=== PATIENT | male | born 1960 | race Caucasian/White ===

== ENCOUNTER 2017-06-09 20:02 | Inpatient (IN) ==
[2017-06-09] MEDS ORDERED: Ondansetron 4 MG/2 ML VIAL IVP ONE (20:07)
[2017-06-09] MEDS ORDERED: 0.9 % Sodium Chloride 1,000 ML IVC ONE ×2 (20:07→21:44)
[2017-06-09] MEDS ORDERED: *HR* FentaNYL (PF) 100 MCG/2 ML VIAL IVP ONE ×2 (20:08→22:11)
[2017-06-09 20:35] LABS: Hematocrit 48.6 % (37.5-50.1); Hemoglobin 16.2 g/dL (12.9-16.9); Mean Corpuscular HGB Conc 33.3 g/dL (31.6-35.5); Mean Corpuscular Hemoglobin 28.7 pg (28.0-33.3); Mean Platelet Volume 9.9 fL (9.4-12.4); Platelet Count 362 K/mcL (140-400); Red Blood Count 5.65 M/mcL (4.19-5.50); Red Cell Distribution Width 14.8 % (11.5-14.5)
--- NOTE | 2017-06-09 20:36 | Emergency Department Note ---
Disposition Clinical Impression: Elevated troponin, SARAH (acute kidney injury), Transaminitis Pancreatitis Qualifiers: Chronicity: acute Pancreatitis type: unspecified pancreatitis type Acute pancreatitis complication: unspecified Qualified Code(s): K85.90 - Acute pancreatitis without necrosis or infection, unspecified Disposition: Admitted As Inpatient Condition: Fair General Adult HPI - General Chief complaint: ED Shortness of Breath/Dyspnea Stated complaint: SHAZIA Time Seen by Provider: 06/09/17 20:06 Source: patient Mode of arrival: EMS Limitations: no limitations Nursing Notes Reviewed: Yes Vital Signs Reviewed: Yes - History of Present Illness HPI Narrative: 56-year-old male history of hypertension, chronic smoking who presents to the ER via EMS due to shortness of breath. Patient remarks that he has felt unwell for 2 days. Symptoms started on Thursday. Reports she has been short of breath with the cough. He has had intermittent substernal chest pain. He is on to report that he has had some periumbilical abdominal pain. No nausea vomiting or diarrhea but feels like he needs to vomit. No prior history of abdominal surgeries. No history of coronary artery disease. He does not wear oxygen at home. EMS reports that he was in the low 80s upon arrival and appeared ashen. He was placed on supplemental oxygen with improvement of his saturation. No other complaints. Pt Subjective Complaint: Short of breath, chest pain, abdominal pain Onset (ago): day(s) Location: abdomen Pain Scale: 8 Consistency: constant Improves with: nothing Worsens with: other (Palpation) Associated symptoms: Reports: chest pain, shortness of breath. Denies: fever/ chills, nausea/vomiting Treatments Prior to Arrival: none - Related Data Home Medications Medication Instructions Recorded Confirmed Aspirin Enteric Coated [Aspirin EC] 81 mg PO DAILY 06/09/17 06/09/17 Atenolol [Tenormin] 50 mg PO DAILY 06/09/17 06/09/17 Gabapentin [Neurontin] 800 mg PO TID 06/09/17 06/09/17 Multivitamin [One Daily Essential] 1 each PO DAILY 06/09/17 06/09/17 Quetiapine Fumarate [Seroquel] 50 mg PO HS 06/09/17 06/09/17 Sertraline [Zoloft] 150 mg PO DAILY 06/09/17 06/09/17 Simvastatin [Zocor] 20 mg PO HS 06/09/17 06/09/17 Tizanidine HCl 4 mg PO TID PRN 06/09/17 06/09/17 Allergies Allergy/AdvReac Type Severity Reaction Status Date / Time No Known Allergies Allergy Verified 12/13/14 18:30 All systems ED: reviewed and negative except as stated. Constitutional: Denies: fever Cardiovascular: Reports: chest pain Respiratory: Reports: cough, dyspnea Gastrointestinal: Reports: abdominal pain. Denies: nausea, vomiting, diarrhea Past Medical History - Past Medical History Attestation: Yes The following information was validated with the patient. Source: patient Medical history: Reports: hypertension Surgical history: Reports: other Psychiatric history: Reports: no psych history - Social History Smoking Status: Current every day smoker Smokeless Tobacco Status: No Alcohol use: Reports: none Drug use: Reports: none Physical Exam - General Limitations: no limitations General appearance: alert, anxious - Head Head exam: atraumatic, normocephalic - Eye Eye exam: Present: normal appearance - ENT ENT exam: normal exam - Neck Neck exam: Present: normal inspection - Chest Chest inspection: Present: normal inspection, symmetric chest wall rise - Respiratory Respiratory exam: Present: accessory muscle use, other (Bilateral rhonchi, tachypnea. ). Absent: wheezes, stridor, prolonged expiratory phase - Cardiovascular Cardiovascular exam: Present: regular rate, normal rhythm, normal heart sounds. Absent: systolic murmur (No appreciable murmurs however auscultation limited due to breath sounds.) - Abdominal Exam Abdominal exam: Present: tenderness (Patient has tenderness diffusely with pain out of proportion. He exhibits involuntary guarding.) - Extremities Exam Extremities exam: Present: normal inspection, full ROM - Expanded Upper Extremity Exam Shoulder exam: Present: normal inspection, full ROM Arm exam: Present: normal inspection, full ROM Elbow exam: Present: normal inspection, full ROM Forearm/Wrist exam: Present: normal inspection, full ROM Hand exam: Present: normal inspection, full ROM - Expanded Lower Extremity Exam Hip/Pelvis exam: Present: normal inspection, full ROM Upper leg exam: Present: normal inspection, full ROM Knee exam: Present: normal inspection, full ROM Lower leg exam: Present: normal inspection, full ROM Ankle exam: Present: normal inspection, full ROM Foot/toe exam: Present: normal inspection, full ROM - Neurological Exam Neurological exam: Present: alert, other (GCS 15.) - Skin Skin exam: Present: warm, dry Course Course Narrative: Patient seen and examined upon time of arrival. 92% on room air. Supplemental oxygen applied. Noted to be 90/60 marginal blood pressure with a concerning peritoneal abdominal exam. [id number] bedside ultrasound unable to fully visualize aorta secondary to bowel gas. Patient taken emergently for angiogram of the chest abdomen and pelvis for dissection evaluation. EKG labs ordered. Normal saline bolus initiated. Fentanyl ordered for pain. - Reevaluation(s) Reevaluation #1: Patient back from CT. Feels somewhat better after a dose of fentanyl. Blood pressure is improved. I will call the radiologist and speak with the results as we are concerned for potential dissection or other intra-abdominal catastrophe. Reevaluation #2: Discussed results of imaging labs with the patient. Agreeable with being admitted. Patient given another dose of knowing ketamine for pain. - Consultations Consultation #1: I spoke with the radiologist to evaluate the patient's CTA of the chest abdomen and pelvis. They do not view any acute dissection. They do see some. Pancreatic stranding consistent with pancreatitis. Vital Signs Temperature 97.8 F 06/09/17 20:02 Pulse Rate 88 06/09/17 20:02 Respiratory Rate 16 06/09/17 20:02 Blood Pressure 90/60 06/09/17 20:02 O2 Sat by Pulse Oximetry 89 06/09/17 20:02 Temperature 97.8 F 06/09/17 20:02 Pulse Rate 88 06/09/17 23:03 Respiratory Rate 20 06/09/17 23:03 Blood Pressure 97/68 06/09/17 23:03 O2 Sat by Pulse Oximetry 100 06/09/17 23:03 Oxygen Delivery Oxygen Delivery Nasal Cannula Medical Decision Making - [facility] Narrative Medical decision making narrative: 56-year-old male presents to the ER due to shortness of breath for 2 days as well as abdominal pain. Noted to have a concerning abdominal exam upon arrival. CT of the chest abdomen pelvis reviewed without any evidence of dissection. He is noted to have pancreatitis with an elevated lipase. He also demonstrates a transaminitis as well as an acute kidney injury with a creatinine of 3. Noted to have a troponin of 0.72 without any ischemic changes on his EKG. Patient given 2 L of IV fluids for transient hypotension. Single 2 as well as ketamine. Patient is admitted to the hospitalist service for pancreatitis, transaminitis, acute kidney injury, elevated troponin. - Lab Data Lab results reviewed: Yes I reviewed the patient's lab results. Result diagrams: 06/09/17 20:11 06/09/17 20:11 Lab Results 06/09/17 06/09/17 06/09/17 Range/Units 20:11 20:11 20:11 WBC 20.5 H (4.3-11.1) K/mcL RBC 5.65 H (4.19-5.50) M/mcL Hgb 16.2 (12.9-16.9) g/dL Hct 48.6 (37.5-50.1) % MCV 86.0 (83.0-100.0) fL MCH 28.7 (28.0-33.3) pg MCHC 33.3 (31.6-35.5) g/dL RDW 14.8 H (11.5-14.5) % Plt Count 362 (140-400) K/mcL MPV 9.9 (9.4-12.4) fL Seg Neutrophils % 64.0 % Band Neutrophils % 32.0 H (0-4) % Lymphocytes % 4.0 % Neutrophils # 19.7 H (1.6-8.9) K/mcL Lymphocytes # 0.8 (0.6-4.6) K/mcL Platelet Estimate Normal (Normal) PT (9.4-12.1) Seconds INR Sodium 134 L (136-145) mEq/L Potassium 4.3 (3.5-5.1) mEq/L Chloride 98 (98-107) mEq/L Carbon Dioxide 18 L (23-29) mEq/L BUN 80 H (6-20) mg/dL Creatinine 3.04 H (0.70-1.30) mg/dL Est GFR ( Amer) 26 L (> 60) Est GFR (Non-Af Amer) 21 L (> 60) BUN/Creatinine Ratio 26 (6-26) Glucose 99 (70-105) mg/dL Calculated Osmolality 302 H (280-300) Calcium 8.5 L (8.6-10.3) mg/dL Total Bilirubin 0.9 (0.3-1.0) mg/dL Direct Bilirubin 0.2 (0.0-0.2) mg/dL Indirect Bilirubin 0.7 (0.0-1.2) mg/dL AST 249 H (13-39) Units/L ALT 109 H (7-52) Units/L Alkaline Phosphatase 114 H (34-104) Units/L Troponin I 0.72 H* (< 0.04) ng/mL B-Natriuretic Peptide (Less than 100) pg/mL Serum Total Protein 6.8 (6.4-8.9) g/dL Albumin 3.6 (3.5-5.7) g/dL Globulin 3.2 (2.4-3.5) g/dL Albumin/Globulin Ratio 1.1 (1.1-2.2) Triglycerides 208 H (< 150) mg/dL Lipase 917 H (11-82) Units/L Urine Color (Yellow) Urine Clarity (Clear) Urine pH (5.0-8.0) pH Units Ur Specific [place] (1.010-1.025) Urine Protein (Neg-Trace) mg/dL Urine Glucose (UA) (Normal) mg/dL Urine Ketones (Negative) mg/dL Urine Blood (Negative) Urine Nitrite (Negative) Urine Bilirubin (Negative) Urine Urobilinogen (Normal) mg/dL Ur Leukocyte Esterase (Negative) Urine Microscopic RBC (0-3) per hpf Urine Microscopic WBC (0-3) per hpf Ur Squamous Epith Cells (None-Few) per lpf Urine Bacteria (None-Few) per hpf Urine Sperm Ur Culture Indicated? (NO) Blood Type Antibody Screen 06/09/17 06/09/17 06/09/17 Range/Units 20:15 20:24 20:33 WBC (4.3-11.1) K/mcL RBC (4.19-5.50) M/mcL Hgb (12.9-16.9) g/dL Hct (37.5-50.1) % MCV (83.0-100.0) fL MCH (28.0-33.3) pg MCHC (31.6-35.5) g/dL RDW (11.5-14.5) % Plt Count (140-400) K/mcL MPV (9.4-12.4) fL Seg Neutrophils % % Band Neutrophils % (0-4) % Lymphocytes % % Neutrophils # (1.6-8.9) K/mcL Lymphocytes # (0.6-4.6) K/mcL Platelet Estimate (Normal) PT 13.4 H (9.4-12.1) Seconds INR 1.2 Sodium (136-145) mEq/L Potassium (3.5-5.1) mEq/L Chloride (98-107) mEq/L Carbon Dioxide (23-29) mEq/L BUN (6-20) mg/dL Creatinine (0.70-1.30) mg/dL Est GFR ( Amer) (> 60) Est GFR (Non-Af Amer) (> 60) BUN/Creatinine Ratio (6-26) Glucose (70-105) mg/dL Calculated Osmolality (280-300) Calcium (8.6-10.3) mg/dL Total Bilirubin (0.3-1.0) mg/dL Direct Bilirubin (0.0-0.2) mg/dL Indirect Bilirubin (0.0-1.2) mg/dL AST (13-39) Units/L ALT (7-52) Units/L Alkaline Phosphatase (34-104) Units/L Troponin I (< 0.04) ng/mL B-Natriuretic Peptide 223 H (Less than 100) pg/mL Serum Total Protein (6.4-8.9) g/dL Albumin (3.5-5.7) g/dL Globulin (2.4-3.5) g/dL Albumin/Globulin Ratio (1.1-2.2) Triglycerides (< 150) mg/dL Lipase (11-82) Units/L Urine Color (Yellow) Urine Clarity (Clear) Urine pH (5.0-8.0) pH Units Ur Specific [place] (1.010-1.025) Urine Protein (Neg-Trace) mg/dL Urine Glucose (UA) (Normal) mg/dL Urine Ketones (Negative) mg/dL Urine Blood (Negative) Urine Nitrite (Negative) Urine Bilirubin (Negative) Urine Urobilinogen (Normal) mg/dL Ur Leukocyte Esterase (Negative) Urine Microscopic RBC (0-3) per hpf Urine Microscopic WBC (0-3) per hpf Ur Squamous Epith Cells (None-Few) per lpf Urine Bacteria (None-Few) per hpf Urine Sperm Ur Culture Indicated? (NO) Blood Type B POSITIVE Antibody Screen NEGATIVE 06/09/17 Range/Units 21:33 WBC (4.3-11.1) K/mcL RBC (4.19-5.50) M/mcL Hgb (12.9-16.9) g/dL Hct (37.5-50.1) % MCV (83.0-100.0) fL MCH (28.0-33.3) pg MCHC (31.6-35.5) g/dL RDW (11.5-14.5) % Plt Count (140-400) K/mcL MPV (9.4-12.4) fL Seg Neutrophils % % Band Neutrophils % (0-4) % Lymphocytes % % Neutrophils # (1.6-8.9) K/mcL Lymphocytes # (0.6-4.6) K/mcL Platelet Estimate (Normal) PT (9.4-12.1) Seconds INR Sodium (136-145) mEq/L Potassium (3.5-5.1) mEq/L Chloride (98-107) mEq/L Carbon Dioxide (23-29) mEq/L BUN (6-20) mg/dL Creatinine (0.70-1.30) mg/dL Est GFR ( Amer) (> 60) Est GFR (Non-Af Amer) (> 60) BUN/Creatinine Ratio (6-26) Glucose (70-105) mg/dL Calculated Osmolality (280-300) Calcium (8.6-10.3) mg/dL Total Bilirubin (0.3-1.0) mg/dL Direct Bilirubin (0.0-0.2) mg/dL Indirect Bilirubin (0.0-1.2) mg/dL AST (13-39) Units/L ALT (7-52) Units/L Alkaline Phosphatase (34-104) Units/L Troponin I (< 0.04) ng/mL B-Natriuretic Peptide (Less than 100) pg/mL Serum Total Protein (6.4-8.9) g/dL Albumin (3.5-5.7) g/dL Globulin (2.4-3.5) g/dL Albumin/Globulin Ratio (1.1-2.2) Triglycerides (< 150) mg/dL Lipase (11-82) Units/L Urine Color Dark Yellow (Yellow) Urine Clarity Turbid A (Clear) Urine pH 6.0 (5.0-8.0) pH Units Ur Specific [place] 1.027 H (1.010-1.025) Urine Protein 100 H (Neg-Trace) mg/dL Urine Glucose (UA) Normal (Normal) mg/dL Urine Ketones Negative (Negative) mg/dL Urine Blood Large H (Negative) Urine Nitrite Negative (Negative) Urine Bilirubin Small H (Negative) Urine Urobilinogen Normal (Normal) mg/dL Ur Leukocyte Esterase Small H (Negative) Urine Microscopic RBC 0-3 (0-3) per hpf Urine Microscopic WBC TNTC H (0-3) per hpf Ur Squamous Epith Cells Many H (None-Few) per lpf Urine Bacteria None Seen (None-Few) per hpf Urine Sperm Present Ur Culture Indicated? NO. (NO) Blood Type Antibody Screen - Radiology Data Radiology results reviewed: Yes I reviewed the patient's radiology results. Chest X-Ray 06/09/17 20:08 IMPRESSION: Low lung volumes No acute cardiopulmonary disease. D/ / Alessandro Shah MD / Alessandro Shah MD Interpreting Provider: Alessandro Shah MD Abdomen/Pelvis CTA 06/09/17 20:15 IMPRESSION: No evidence of an acute aortic syndrome involving the thoracoabdominal aorta. Diffusely ectatic thoracoabdominal aorta with moderate to heavy diffuse mixed atherosclerotic plaque throughout its course. 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 Peripancreatic inflammatory stranding suspicious for interstitial edematous pancreatitis. No organized peripancreatic fluid collection or evidence of pancreatic necrosis. Inflammatory stranding along the left pericolic gutter and within the pelvis. Although this may relate to pancreatitis, undifferentiated colitis is not entirely excluded given colonic air-fluid levels and possible mild wall thickening. Ischemic colitis is felt unlikely given patent visceral branch vessels and lack of portal venous gas and pneumatosis coli. Scattered tree-in-bud nodularity throughout the lungs with more patchy consolidative opacities at the left lung base. These findings are most suspicious for sequelae of aspiration given basilar predominant bronchial wall thickening with mucoid impaction, tracheobronchial secretions and esophageal features suggesting dysmotility and reflux. Critical results were called by Dr. Mohsen Mendoza to Matt Briceño on 06/09/2017 at 20:50. D/ / 06/09/2017 21:17:07 Mohsen Mendoza / sunshine Interpreting Provider: Mohsen Mendoza Chest CTA 06/09/17 20:15 IMPRESSION: No evidence of an acute aortic syndrome involving the thoracoabdominal aorta. Diffusely ectatic thoracoabdominal aorta with moderate to heavy diffuse mixed atherosclerotic plaque throughout its course. 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 Peripancreatic inflammatory stranding suspicious for interstitial edematous pancreatitis. No organized peripancreatic fluid collection or evidence of pancreatic necrosis. Inflammatory stranding along the left pericolic gutter and within the pelvis. Although this may relate to pancreatitis, undifferentiated colitis is not entirely excluded given colonic air-fluid levels and possible mild wall thickening. Ischemic colitis is felt unlikely given patent visceral branch vessels and lack of portal venous gas and pneumatosis coli. Scattered tree-in-bud nodularity throughout the lungs with more patchy consolidative opacities at the left lung base. These findings are most suspicious for sequelae of aspiration given basilar predominant bronchial wall thickening with mucoid impaction, tracheobronchial secretions and esophageal features suggesting dysmotility and reflux. Critical results were called by Dr. Mohsen Mendoza to Matt Briceño on 06/09/2017 at 20:50. D/ / 06/09/2017 21:17:07 Mohsen Mendoza / sunshine Interpreting Provider: Mohsen Mendoza - EKG Data EKG #1 EKG attestation: Yes I reviewed and interpreted this EKG. EKG results narrative: EKG demonstrates sinus rhythm with a rate of 90 bpm. Normal axis. Normal intervals. Normal R-wave progression. No gross ST elevations or depressions. No acute ischemic findings. S.B.A.R. - S.B.A.R. Situation: Demographics, MOA Background: Presenting Complaint, Relevant PMH, Meds, & Allergies Assessment: Vital Signs, Course and respsone to treatment, Exam Concerns, Patient/Family Expectation, Pertinant Lab Results Recommendation: Barrier(s) to disposition, Recommendation based on pending studies, treatments, or consults S.B.A.R. Report Given to: Dr. Yasmin Pepe Repor Time: 22:29 Attestation Statement - Attestation Attestation: I examined this patient and my medical decision-making was reviewed with the Resident Physician. I agree with the documented findings, disposition and treatment plan as described except to the extent set forth below. Patient presented appearing acutely ill, tachypneic, very uncomfortable with peritoneal signs on his abdominal exam. He was short of breath and hypoxemic as well. Dr. Briceño and I accompanied him to CT scan. Diagnosis pancreatitis. He has been hydrated, treated with analgesics in the ED. Troponin is elevated, as is his creatinine. Discussed in detail with the hospitalist by Dr. Robbins, they have accepted for admission. Critical care time: I was directly and primarily involved in the care of this patient for 40 minutes excluding procedures.
[2017-06-09 20:40] LABS: INR 1.2; Prothrombin Time 13.4 Seconds (9.4-12.1)
[2017-06-09 20:55] LABS: Lymphocytes # 0.8 K/mcL (0.6-4.6); Neutrophils # 19.7 K/mcL (1.6-8.9); Platelet Estimate Normal (Normal)
[2017-06-09 21:40] LABS: Albumin 3.6 g/dL (3.5-5.7); Albumin/Globulin Ratio 1.1 (1.1-2.2); Bilirubin,Direct 0.2 mg/dL (0.0-0.2); Bilirubin,Indirect 0.7 mg/dL (0.0-1.2); Bilirubin,Total 0.9 mg/dL (0.3-1.0); Calcium 8.5 mg/dL (8.6-10.3); Globulin 3.2 g/dL (2.4-3.5); Potassium 4.3 mEq/L (3.5-5.1); Total Protein 6.8 g/dL (6.4-8.9)
[2017-06-09 21:47] LABS: Bilirubin,Urine Small (Negative); Blood,Urine Large (Negative); Clarity,Urine Turbid (Clear); Color,Urine Dark Yellow (Yellow); Glucose,Urine (UA) Normal (Normal); Ketones,Urine Negative (Negative); Leukocyte Esterase,Urine Small (Negative); Nitrite,Urine Negative (Negative); Protein,Urine 100 mg/dL (Neg-Trace); Specific Gravity,Urine 1.027 (1.010-1.025); Urobilinogen,Urine Normal (Normal)
[2017-06-09 21:49] LABS: Bacteria,Urine None Seen per hpf (None-Few); Squamous Epithelial Cell,Urine Many per lpf (None-Few); WBC,Urine TNTC per hpf (0-3)
[2017-06-09 22:04] LABS: RBC,Urine 0-3 per hpf (0-3); Sperm,Urine Present
[2017-06-09] MEDS ORDERED: Ketamine *HR* 20 MG in 0.9 % Sodium Chloride 100 ML IVPB ONE (22:10)
[2017-06-09] MEDS ORDERED: Ondansetron 4 MG/2 ML VIAL IVP STA (22:42)
[2017-06-09] MEDS ORDERED: *HR* HYDROmorphone (PF) 1 MG/ML SYRINGE IVP ONE (23:10)
--- NOTE | 2017-06-09 23:55 | Internal Med History&Physical ---
Date of Encounter: 06/10/17 Time of Encounter: 23:54 Assessment and Plan (1) Pancreatitis Current visit: Yes Status: Acute Aggresive IVFs Repeat lipase Kemp and Fentanyl for pain NPO Qualifiers: Chronicity: acute Pancreatitis type: unspecified pancreatitis type Qualified Code(s): K85.90 - Acute pancreatitis without necrosis or infection, unspecified Code(s): K85.90 - Acute pancreatitis without necrosis or infection, unspecified (2) SARAH (acute kidney injury) Current visit: Yes Status: Acute Continue trending Troponins Mild ST depression in lateral leads Start Heparin drip Code(s): N17.9 - Acute kidney failure, unspecified (3) Elevated troponin Current visit: Yes Status: Acute (4) Peripheral artery disease Current visit: No Status: Chronic His bilateral distal pulses are undetectable manually He has mottling of feet and his toes anr dusky purple and monet Vascular consult ordered Bilateral arterial U/S of LEs ordered LA ordered (5) Aspiration pneumonia Current visit: Yes Status: Acute Qualifiers: Aspiration pneumonia type: unspecified Laterality: bilateral Lung location: lower lobe of lung Qualified Code(s): J69.0 - Pneumonitis due to inhalation of food and vomit Code(s): J69.0 - Pneumonitis due to inhalation of food and vomit (6) Hypotension Current visit: Yes Status: Acute (7) Sepsis Current visit: Yes Status: Acute likely associated with possible aspiration PNA Zosyn started Blood cultures x 2 DuoNebs Qualifiers: Sepsis type: sepsis due to unspecified organism Qualified Code(s): A41.9 - Sepsis, unspecified organism Internal Medicine - H&P: HPI Chief complaint: Abdominal pain and SOB History of present illness: Mr. Galvez is a 56 year old male 56-year-old male presented with acute generalizes abdominal and chest pain and SOB. His symptoms started on Thursday and have become worse over the past 24 hrs. His chest pain is substernal without radiation and his initial Trp is elevated (o.72) woth minimal ST-depression in lat leads. He denies his of CAD but has severe PAD. His lipase is elevated (917) and CT-changes suggest acute pancreatis. A CTA chest,abd and pelvis did not show dissection but did show bilateral patchy consolidative changes at the bases suspicious for aspiration PNA. He was started on Zosyn. He has a leukocytosis of > 20K. He also appears to have suffered an SARAH dehydration and hypotension. He's being aggressively fluid resuscitated and his BP is now stable. Past Med Surg Social Fam HX - Past Medical History Medical history: hypertension Psychiatric history: no psych history - Past Surgical History Surgical History: other - Social History Smoking Status: Current every day smoker Smokeless Tobacco Status: No Alcohol use: none Drug use: none Internal Medicine - H&P: Meds Aspirin Enteric Coated [Aspirin EC] 81 mg PO DAILY 06/09/17 [History] Atenolol [Tenormin] 50 mg PO DAILY 06/09/17 [History] Gabapentin [Neurontin] 800 mg PO TID 06/09/17 [History] Multivitamin [One Daily Essential] 1 each PO DAILY 06/09/17 [History] Quetiapine Fumarate [Seroquel] 50 mg PO HS 06/09/17 [History] Sertraline [Zoloft] 150 mg PO DAILY 06/09/17 [History] Simvastatin [Zocor] 20 mg PO HS 06/09/17 [History] Tizanidine HCl 4 mg PO TID PRN 06/09/17 [History] 3 Allergy/AdvReac Type Severity Reaction Status Date / Time No Known Allergies Allergy Verified 12/13/14 18:30 All Systems PM: A 10-system review of systems was performed and is negative for pertinent findings except as documented above in the HPI. - Constitutional Constitutional: chills, fever(s), no fatigue, no falls, no lethargy - EENT Eyes: no change in vision, no decreased night vision, no diplopia, no itchy eyes , no tunnel vision Nose, mouth and throat: no bleeding gums, no dry mouth, no epistaxis, no mouth pain, no nasal obstruction - Breasts Breasts: no change in shape, no nipple discharge, no swelling - Cardiovascular Cardiovascular ROS IM: chest pain, no claudication, no irregular heart rhythm, no lightheadedness, no palpitations, no paroxysmal nocturnal dyspnea, no syncope - Respiratory Respiratory: no cough, no dyspnea, no hemoptysis, no snoring, no stridor - Gastrointestinal Gastrointestinal: abdominal pain, no belching, no change in stool character, no coffee ground emesis, no dyspepsia, no hematemesis, no hematochezia, no melena - Genitourinary Genitourinary ROS male: no dysuria, no flank pain, no nocturia, no urinary incontinence - Integumentary Integumentary IM: no erythema, no rash, no skin ulcer, no jaundice - Neurological Neurological ROS: no abnormal hearing, no behavioral changes, no confusion, no disequilibrium, no focal weakness, no restless legs, no vertigo - Psychiatric Psychiatric: no anxiety, no behavioral changes, no suicidal ideation, no visual hallucinations - Endocrine Endocrine IM: no cold intolerance, no heat intolerance - Allergic/Immunologic Allergic/Immunologic: no tongue swelling - Constitutional Vitals: Temp Pulse Resp BP Pulse Ox 97.8 F 88 20 97/68 100 06/09/17 20:02 06/09/17 23:03 06/09/17 23:03 06/09/17 23:03 06/09/17 23:03 General appearance: Present: A&O X 3, severe distress - Head Head exam: Present: atraumatic, normocephalic - Eye Eye exam: Present: PERRL, conjuntiva pink, sclera anicteric Pupils: Present: PERRL - Neck Neck exam general surgery: Present: supple, trachea midline. Absent: lymphadenopathy, tenderness, nuchal rigidity - Respiratory Respiratory exam: Absent: accessory muscle use, chest wall tenderness, decreased breath sounds, CTAB, rales, rhonchi, wheezes - Cardiovascular Cardiovascular exam: Present: RRR, +S1, +S2. Absent: diastolic murmur, gallop, rubs, systolic murmur - GI/Abdominal GI/Abdominal exam: Present: firm, guarding, normal bowel sounds, soft, no peritoneal signs. Absent: diminished bowel sounds, distended, hepatomegaly, mass, rebound, tenderness - Extremities Exam Extremities exam: Present: cyanotic, normal capillary refill, mottling, radial pulses palpable and symmetrical. Absent: calf tenderness, pedal edema, warm - Neurological Exam Neurological exam: Present: alert, CN II-XII intact, oriented X3, reflexes normal, no focal deficits. Absent: motor sensory deficit, pronater drift, facial droop, speech deficit - Skin Skin exam: Present: diaphoretic, intact, mottled, pallor, warm. Absent: dry, normal color Internal Med - H&P Results - Labs CBC & Chem 7: 06/09/17 20:11 06/09/17 20:11
[2017-06-10] MEDS ORDERED: *HR* FentaNYL (PF) 100 MCG/2 ML VIAL IVP PRN ×2 (00:01→07:50)
[2017-06-10] MEDS ORDERED: *HR* HYDROcodone/Acet 10/325 mg TABLET PO PRN ×2 (00:09→07:50)
[2017-06-10] MEDS: 0.9 % Sodium Chloride 1,000 ML IVC SCH ×6 (00:33→19:22)
[2017-06-10] MEDS ORDERED: *HR* Heparin 5,000 UNIT/ML VIAL IVP ONE (02:03)
[2017-06-10] MEDS ORDERED: *HR* Heparin 5,000 UNIT/ML VIAL IVP PRN ×2 (02:03)
[2017-06-10] MEDS ORDERED: Heparin 25,000 UNIT/500 ML D5W 25,000 UNIT/500 ML BAG IVC SCH (02:15)
[2017-06-10 02:42] LABS: ABG Base Excess -11 mEq/L (-2 to 3); ABG HCO3 15 mEq/L (21-27); ABG Oxygen Saturation 96 % (95-98); ABG PCO2 31 mmHg (35-45); ABG PH 7.29 pH Units (7.32-7.45); ABG PO2 92 mmHg (85-104); ABG TCO2 16 mEq/L (20-26)
[2017-06-10] MEDS ORDERED: Pantoprazole 40 MG in 0.9 % Sodium Chloride Mini Bag 100 ML IVC SCH (03:00)
[2017-06-10] MEDS ORDERED: Propofol 500 MG/50 ML INFUS..BTL ONE (03:08)
[2017-06-10] MEDS ORDERED: 0.9 % Sodium Chloride 1,000 ML IVC SCH (03:15)
[2017-06-10] MEDS ORDERED: Lacri-Lube 3.5 GM TUBE BOTH EYES PRN ×2 (03:29→07:50)
[2017-06-10] MEDS ORDERED: Octreotide 50 MCG/ML SYRINGE IVP ONE (03:33)
[2017-06-10 03:35] LABS: Hematocrit 43.6 % (37.5-50.1); Hemoglobin 14.1 g/dL (12.9-16.9); Mean Corpuscular HGB Conc 32.3 g/dL (31.6-35.5); Mean Corpuscular Hemoglobin 28.7 pg (28.0-33.3); Mean Corpuscular Volume 88.6 fL (83.0-100.0); Mean Platelet Volume 10.1 fL (9.4-12.4); Nucleated Red Blood Cells 0.1 /100 WBC (0); Platelet Count 293 K/mcL (140-400); Red Blood Count 4.92 M/mcL (4.19-5.50); Red Cell Distribution Width 14.9 % (11.5-14.5)
[2017-06-10 03:40] LABS: INR 1.4; Prothrombin Time 15.2 Seconds (9.4-12.1)
[2017-06-10 03:43] LABS: Activated Partial Thrombo Time 29.9 Seconds (26.0-36.0)
--- NOTE | 2017-06-10 03:46 | Event Note ---
Date of Encounter: 06/10/17 Time of Encounter: 03:31 I responded to a rapid response call on this patient. Upon my arrival, patient was in respiratory distress, mottling, and had severe pain in his abdomen and had thready pulses. Due to rapid decline in his status and impending respiratory failure, we decided to proactively intubate patient. Patient was therefore emergently intubated by respiratory therapy under my supervision. He was premedicated with Versed and Etomidate, and intubation was successful on second attempt. As he was being intubated, he had significant amount of gross coffee-ground emesis and hematemesis. An airway was successfully established and secured. Due to poor and limited IV access, I placed a femoral central venous catheter emergently on the left side. I attempted the right side but was unsuccessful at threading the guidewire through femoral vein. Therefore, I aborted the right femoral CVC attempt. I then attempted the left femoral vein and was able to successfully aspirate and canulate the left femoral vein on the first attempt. This was done using Seldinger technique. The guidewire was threaded through the needle and needle removed intact. I then threaded the triple-lumen catheter over guidewire and removed the guidewire intact. I successfully aspirated all three ports of blood and flushed with normal saline. CVC was then secured in place with provided silk suture. Once patient was stabilized, he was moved to the intensive care unit. He was placed on mechanical ventilator and IV fluids were initiated. We are placing him on propofol drip for sedation, Protonix drip for his GI bleed, and ongoing hemodynamic support as deemed necessary in the intensive care unit. Of note, heparin was never started due to his GI bleed during intubation. Dr. Hoffman did contact GI for urgent endoscopy. GI recommend stabilization in the intensive care unit before any EGD can be performed. In the ICU, his mottling has improved somewhat and his skin color/tone has improved with airway stabilization. On exam, he has bilateral lung sounds with rhonchi throughout. Cardiac exam reveals a heart rate in the 90s and 100s. Abdomen is distended and tense and tender especially prior to intubation. Bowel sounds are minimal. He also has mottling in his lower extremities and blue/cyanotic fingers and toes. Again the mottling and cyanosis have improved after intubation and stabilization. Impression: 1. Acute upper GI bleed 2. Ischemic lower extremities 3. Acute respiratory failure Plan: 1. Admit to ICU for ongoing critical care support and management including IV fluids, blood products, mechanical ventilation, and hand clipper consultation. 2. Consult GI for endoscopy as noted by Dr. Hoffman. 3. Vascular surgery consultation for ischemic lower extremities as noted by Dr. Hoffman. Total of 50 minutes critical care time thus far, including central venous catheter placement noted above.
--- NOTE | 2017-06-10 03:46 | Pulmonology Consult Note ---
<Philippe Willett - Last Filed: 06/10/17 07:18> Date of Encounter: 06/10/17 Time of Encounter: 03:41 Assessment and Plan (1) Acute respiratory failure with hypoxia Current Visit: Yes Status: Acute Acute hypoxic respiratory failure, intubated with ventilatory support The patient was using substantial accessory muscles and abdominal breathing, substantial cyanosis in the extremities His respiratory status decreased rapidly and intubation was required This is likely secondary to severe abdominal pain, as well as suspected aspiration pneumonia On intubation the patient did have significant coffee-ground emesis We will check daily ABGs, chemistry, CBC (2) Sepsis Current Visit: Yes Status: Acute Sepsis secondary to aspiration pneumonia versus GI process. WBC 20.5, lactic acid 2.8 The patient presents with leukocytosis, tachypnea, hypotension which was responsive to fluids Started on Zosyn, blood cultures pending, I will add flagyl and meropenem at this time Patient continues on IV fluids, we will consider pressor support as needed qSOFA 2, the patient is at very high risk of complication and mortality Qualifiers: Sepsis type: sepsis due to unspecified organism Qualified Code(s): A41.9 - Sepsis, unspecified organism (3) Upper gastrointestinal bleed Current Visit: Yes Status: Acute Upper GI bleed with coffee-ground emesis Significant emesis on attempt to intubate Post intubation, OG tube was successfully advanced to the patient's stomach where dark bloody emesis is aspirated We immediately discontinued use of IV heparin, we will start a Protonix drip as well as octreotide drip Gastroenterology was consulted at time of rapid response, they will see the patient in the morning (4) Pancreatitis Current Visit: Yes Status: Acute Significant acute pancreatitis seen on CT with lipase elevated This could be a source of patient's significant pain, however he also has significant GI bleeding The patient is being treated with IV fluids and antibiotics for other concerns, however will add meropenem for coverage of pancreatitis GI has been consulted, appreciate recommendations Qualifiers: Chronicity: acute Pancreatitis type: unspecified pancreatitis type Acute pancreatitis complication: unspecified Qualified Code(s): K85.90 - Acute pancreatitis without necrosis or infection, unspecified (5) Peripheral artery disease Current Visit: Yes Status: Chronic Peripheral artery disease with apparent claudication of b/l LEs CTA of the abdomen/pelvis shows complete occlusion of the right common iliac artery with apparent collateral circulation Heparin has been held due to apparent acute UGIB Spoke with Dr. Wilhelm on the phone who believes this patient may need significant intervention but is not currently stable enough to undergo surgical procedure We will review results of CASANDRA, vascular consult in the morning (6) Aspiration pneumonia Current Visit: Yes Status: Acute Aspiration pneumonia, secondary to GI bleed + Pancreatitis Patient has significant leukocytosis, bandemia Respiratory status worsened while on oxymask, requiring intubation Currently on Zosyn, Add metronidazole We will continue to monitor Qualifiers: Aspiration pneumonia type: unspecified Laterality: bilateral Lung location: lower lobe of lung Qualified Code(s): J69.0 - Pneumonitis due to inhalation of food and vomit (7) SARAH (acute kidney injury) Current Visit: Yes Status: Acute SARAH, unknown baseline Serum creatinine 3.69, eGFR 17 Aggressive fluid resuscitation has been initiated, jimenes catheter in place We will continue to hydrate, avoid nephrotoxic agents (8) Elevated troponin Current Visit: Yes Status: Acute Elevated troponin with associated chest pain and minor ST-T depression on EKG Heparin drip is held due to UGIB We will continue to trend troponin and repeat EKG in the AM (9) Transaminitis Current Visit: Yes Status: Acute Transaminitis of unknown origin May be elevated in light of GI pathology History of Present Illness Consult date: 06/10/17 Requesting physician: Carlito Hoffman Reason for consult: dyspnea, chest pain, hypoxemia Chief complaint: Severe abdominal pain History of present illness: Mr. gonzales is a 56-year-old man who presented to the emergency room with acute generalized abdominal and chest pains as well as acute shortness of breath. His symptoms apparently started on Thursday some worse over the past 24 hours. His chest pain is substernal without radiation in his initial troponin was elevated with minimal ST depressions lateral leads. In the ED he did have a CT of the chest, abdomen and pelvis which did demonstrate bilateral patchy consolidative changes at the bases suspicious for aspiration pneumonia, and additionally he had CT changes suggestive of acute pancreatitis as well as an elevated lipase at 917, and WBC greater than 20,000. The patient was initially admitted to the medicine floor, however while on the floor the nurses noticed that his legs became increasingly mottled in his feet BECAME blue. The patient also complained of significantly worsening chest pain as well as abdominal pain that was intolerable. He quickly became extremely dyspneic, and continued to have worsening O2 saturation. He also had agonal breathing with significant accessory muscle use and abdominal breathing. A rapid response was called at which time it was determined that the patient would require intubation and transfer to the ICU. Upon attempt to intubate the patient began vomiting coffee ground emesis acutely which required suctioning, however he was successfully intubated. A central line was placed, and the fluid was started on aggressive fluid hydration as well as blood transfusion. At this time the patient is stable, and GI was consultative to see the patient in the morning regarding upper GI bleed Past Med Surg Social Fam HX - Past Medical History Medical history: hypertension Psychiatric history: no psych history - Past Surgical History Surgical History: other - Social History Smoking Status: Current every day smoker Smokeless Tobacco Status: No Alcohol use: none Drug use: none Medications and Allergies Aspirin Enteric Coated [Aspirin EC] 81 mg PO DAILY 06/09/17 [History] Atenolol [Tenormin] 50 mg PO DAILY 06/09/17 [History] Gabapentin [Neurontin] 800 mg PO TID 06/09/17 [History] Multivitamin [One Daily Essential] 1 each PO DAILY 06/09/17 [History] Quetiapine Fumarate [Seroquel] 50 mg PO HS 06/09/17 [History] Sertraline [Zoloft] 150 mg PO DAILY 06/09/17 [History] Simvastatin [Zocor] 20 mg PO HS 06/09/17 [History] Tizanidine HCl 4 mg PO TID PRN 06/09/17 [History] 3 Allergy/AdvReac Type Severity Reaction Status Date / Time No Known Allergies Allergy Verified 12/13/14 18:30 All Systems: The remainder of the systems were reviewed and are negative Review of Systems: The patient was quickly intubated at the time of assessment, however he did say that he was having significant increase in chest pain, as well as abdominal pain. He was extremely dyspneic and said that he was scared. He was admitted shortly after this. Physical Examination Vital Signs: Vital Signs, Last 4 Hours Temp Pulse Resp BP Pulse Ox 06/10/17 01:00 98 F 88 28 108/68 93 General appearance: other (Patient was initially extremely distressed moaning in pain, and breathing from the abdomen) Eyes: nonicteric ENT: oropharynx dry Neck: supple, no JVD Effort: very labored (Accessory muscles in use) Inspection: hyperextended Auscultation: bilateral: rales (bibasilar), rhonchi Cardiovascular: regular rate and rhythm (but tachycardic) Gastrointestinal: guarding, other (Severely distended and rigid, guarding with agonizing pain to light palpation) Integumentary: other (Mottling) Extremities: no edema, cool, cyanosis (Significant cyanosis and mottling of lower extremities with cyanosis of the distal upper extremeties) Musculoskeletal: ROM normal normal mental status, non-focal exam, pupils equal and round anxious Results - Laboratory Findings CBC and BMP: 06/10/17 03:21 06/10/17 03:21 ABG ABG pH 7.29 pH Units (7.32-7.45) L 06/10/17 02:39 ABG pCO2 31 mmHg (35-45) L 06/10/17 02:39 ABG pO2 92 mmHg (85-104) 06/10/17 02:39 ABG O2 Saturation 96 % (95-98) 06/10/17 02:39 PT/INR, D-dimer PT 13.4 Seconds (9.4-12.1) H 06/09/17 20:15 Abnormal lab findings: Abnormal lab results WBC 17.0 K/mcL (4.3-11.1) H 06/10/17 03:21 RDW 14.9 % (11.5-14.5) H 06/10/17 03:21 Band Neutrophils % 32.0 % (0-4) H 06/09/17 20:11 Neutrophils # 19.7 K/mcL (1.6-8.9) H 06/09/17 20:11 Nucleated RBCs/100 WBC 0.1 /100 WBC (0) H 06/10/17 03:21 PT 13.4 Seconds (9.4-12.1) H 06/09/17 20:15 ABG pH 7.29 pH Units (7.32-7.45) L 06/10/17 02:39 ABG pCO2 31 mmHg (35-45) L 06/10/17 02:39 ABG HCO3 15 mEq/L (21-27) L 06/10/17 02:39 ABG Total CO2 16 mEq/L (20-26) L 06/10/17 02:39 ABG Base Excess -11 mEq/L (-2 to 3) L 06/10/17 02:39 Sodium 134 mEq/L (136-145) L 06/09/17 20:11 Carbon Dioxide 18 mEq/L (23-29) L 06/09/17 20:11 BUN 80 mg/dL (6-20) H 06/09/17 20:11 Creatinine 3.04 mg/dL (0.70-1.30) H 06/09/17 20:11 Est GFR ( Amer) 26 (> 60) L 06/09/17 20:11 Est GFR (Non-Af Amer) 21 (> 60) L 06/09/17 20:11 Calculated Osmolality 302 (280-300) H 06/09/17 20:11 Lactic Acid 2.8 mmol/L (0.5-2.2) H 06/10/17 01:42 Calcium 8.5 mg/dL (8.6-10.3) L 06/09/17 20:11 AST 249 Units/L (13-39) H 06/09/17 20:11 ALT 109 Units/L (7-52) H 06/09/17 20:11 Alkaline Phosphatase 114 Units/L (34-104) H 06/09/17 20:11 Troponin I 0.72 ng/mL (< 0.04) H* 06/09/17 20:11 B-Natriuretic Peptide 223 pg/mL (Less than 100) H 06/09/17 20:24 Triglycerides 208 mg/dL (< 150) H 06/09/17 20:11 Lipase 917 Units/L (11-82) H 06/09/17 20:11 Urine Clarity Turbid (Clear) A 06/09/17 21:33 Ur Specific [place] 1.027 (1.010-1.025) H 06/09/17 21:33 Urine Protein 100 mg/dL (Neg-Trace) H 06/09/17 21:33 Urine Blood Large (Negative) H 06/09/17 21:33 Urine Bilirubin Small (Negative) H 06/09/17 21:33 Ur Leukocyte Esterase Small (Negative) H 06/09/17 21:33 Urine Microscopic WBC TNTC per hpf (0-3) H 06/09/17 21:33 Ur Squamous Epith Cells Many per lpf (None-Few) H 06/09/17 21:33 - Diagnostic Findings Chest x-ray: image reviewed - Clinical Findings Intake & Output: Intake & Output 06/09/17 06/09/17 06/10/17 15:59 23:59 07:59 Intake Total 1000 / 1000 Balance 1000 / 1000 Consult Discharge Plan - Plan Referrals: Dex Franklin MD [Primary Care Provider] - <Marisol Wood - Last Filed: 06/10/17 22:52> Date of Encounter: 06/10/17 All Systems: The remainder of the systems were reviewed and are negative Physical Examination Vital Signs: Vital Signs, Last 4 Hours Resp BP Pulse Ox 06/10/17 21:26 34 121/85 94 06/10/17 19:51 19 105/95 92 Ventilator Settings Ventilator Settings: Ventilator Settings, Last 8 Hours Ventilator Mode A/C Ventilator Mode A/C Ventilator Mode VC+ Ventilator Mode VC+ Ventilator Mode VC+ Ventilator Mode VC+ Ventilator Mode VC+ Ventilator Mode VC+ Ventilator Mode VC+ Ventilator Mode VC+ Ventilator Tidal Volume 650 Setting Ventilator Tidal Volume 650 Setting Ventilator Tidal Volume 650 Setting Ventilator Tidal Volume 650 Setting Ventilator Tidal Volume 650 Setting Ventilator Tidal Volume 650 Setting Ventilator Tidal Volume 650 Setting Ventilator Tidal Volume 650 Setting Ventilator Tidal Volume 650 Setting Ventilator Tidal Volume 650 Setting Ventilator Respiratory Rate 34 Setting Ventilator Respiratory Rate 18 Setting Ventilator Respiratory Rate 18 Setting Ventilator Respiratory Rate 18 Setting Ventilator Respiratory Rate 18 Setting Ventilator Respiratory Rate 18 Setting Ventilator Respiratory Rate 18 Setting Ventilator Respiratory Rate 18 Setting Ventilator Respiratory Rate 18 Setting Ventilator Respiratory Rate 18 Setting Actual Respiratory Rate 34 Actual Respiratory Rate 19 Actual Respiratory Rate 24 Actual Respiratory Rate 26 Actual Respiratory Rate 26 Actual Respiratory Rate 26 Actual Respiratory Rate 23 Actual Respiratory Rate 21 Positive End Expiratory 5 Pressure Positive End Expiratory 5 Pressure Positive End Expiratory 5 Pressure Positive End Expiratory 5 Pressure Positive End Expiratory 5 Pressure Positive End Expiratory 5 Pressure Positive End Expiratory 5 Pressure Positive End Expiratory 5 Pressure Positive End Expiratory 5 Pressure Positive End Expiratory 5 Pressure Peak Inspiratory Airway 34 Pressure Peak Inspiratory Airway 26 Pressure Peak Inspiratory Airway 27 Pressure Peak Inspiratory Airway 32 Pressure Peak Inspiratory Airway 31 Pressure Peak Inspiratory Airway 27 Pressure Peak Inspiratory Airway 27 Pressure Peak Inspiratory Airway 31 Pressure Results - Laboratory Findings CBC and BMP: 06/10/17 17:00 06/10/17 17:00 ABG ABG pH 7.15 pH Units (7.32-7.45) L* 06/10/17 21:04 ABG pCO2 39 mmHg (35-45) 06/10/17 21:04 ABG pO2 103 mmHg (85-104) D 06/10/17 21:04 ABG O2 Saturation 96 % (95-98) 06/10/17 21:04 PT/INR, D-dimer PT 18.4 Seconds (9.4-12.1) H 06/10/17 18:05 Abnormal lab findings: Abnormal lab results RBC 4.10 M/mcL (4.19-5.50) L 06/10/17 17:00 Hgb 11.9 g/dL (12.9-16.9) L 06/10/17 17:00 Hct 36.9 % (37.5-50.1) L 06/10/17 17:00 RDW 15.6 % (11.5-14.5) H 06/10/17 17:00 Band Neutrophils % 18.0 % (0-4) H 06/10/17 10:41 Metamyelocytes % 2.0 % (0) H 06/10/17 10:41 Myelocytes % 2.0 % (0) H 06/10/17 10:41 Nucleated RBCs/100 WBC 0.9 /100 WBC (0) H 06/10/17 17:00 Reactive Lymphocytes Present (Not Present) A 06/10/17 17:00 Clumped Platelets Few (Not Present) A 06/10/17 03:21 PT 18.4 Seconds (9.4-12.1) H 06/10/17 18:05 APTT 119.1 Seconds (26.0-36.0) H* 06/10/17 18:05 Fibrinogen 673 mg/dL (169-393) H 06/10/17 17:00 Heparin Anti-Xa, Unfract 0.83 IU/mL (0.30-0.70) H 06/10/17 17:00 ABG pH 7.15 pH Units (7.32-7.45) L* 06/10/17 21:04 ABG HCO3 14 mEq/L (21-27) L 06/10/17 21:04 ABG Total CO2 15 mEq/L (20-26) L 06/10/17 21:04 ABG Base Excess -15 mEq/L (-2 to 3) L 06/10/17 21:04 Carbon Dioxide 16 mEq/L (23-29) L 06/10/17 17:00 BUN 106 mg/dL (6-20) H 06/10/17 17:00 Creatinine 4.82 mg/dL (0.70-1.30) H 06/10/17 17:00 Est GFR ( Amer) 15 (> 60) L 06/10/17 17:00 Est GFR (Non-Af Amer) 13 (> 60) L 06/10/17 17:00 Glucose 37 mg/dL (70-105) L* 06/10/17 17:00 Calculated Osmolality 322 (280-300) H 06/10/17 17:00 Lactic Acid 6.9 mmol/L (0.5-2.2) H* 06/10/17 17:00 Calcium 7.0 mg/dL (8.6-10.3) L 06/10/17 17:00 Venous Ioniz Calcium 0.87 mmol/L (1.15-1.35) L 06/10/17 13:28 Phosphorus 9.2 mg/dL (2.7-4.5) H 06/10/17 17:00 Magnesium 2.7 mg/dL (1.6-2.6) H 06/10/17 17:00 AST 1907 Units/L (13-39) H 06/10/17 17:00 ALT > 500 Units/L (7-52) H 06/10/17 17:00 Troponin I 0.73 ng/mL (< 0.04) H* 06/10/17 07:35 B-Natriuretic Peptide 223 pg/mL (Less than 100) H 06/09/17 20:24 Serum Total Protein 4.8 g/dL (6.4-8.9) L 06/10/17 17:00 Albumin 2.3 g/dL (3.5-5.7) L 06/10/17 17:00 Albumin/Globulin Ratio 0.9 (1.1-2.2) L 06/10/17 17:00 Triglycerides 208 mg/dL (< 150) H 06/09/17 20:11 Lipase 426 Units/L (11-82) H 06/10/17 07:35 Urine Clarity Turbid (Clear) A 06/09/17 21:33 Ur Specific [place] 1.027 (1.010-1.025) H 06/09/17 21:33 Urine Protein 100 mg/dL (Neg-Trace) H 06/09/17 21:33 Urine Blood Large (Negative) H 06/09/17 21:33 Urine Bilirubin Small (Negative) H 06/09/17 21:33 Ur Leukocyte Esterase Small (Negative) H 06/09/17 21:33 Urine Microscopic WBC TNTC per hpf (0-3) H 06/09/17 21:33 Ur Squamous Epith Cells Many per lpf (None-Few) H 06/09/17 21:33 - Clinical Findings Intake & Output: Intake & Output 06/10/17 06/10/17 06/10/17 07:59 15:59 23:59 Intake Total 4600 / 4600 1500 / 1500 2410 / 2410 Output Total 925 / 925 30 / 30 75 / 75 Balance 3675 / 3675 1470 / 1470 2335 / 2335 Weight 81.6 kg - Attending Attestation I saw and evaluated this patient and my medical decision-making was reviewed with the Resident Physician. I agree with the documented findings, disposition and treatment plan as described except to the extent set forth below. We independently had [id number] contact with the patient I spent 50 minutes of Critical Care time with this patient. It involved decision making of high complexity to assess, manipulate, and support vital organ system failure and/or to prevent further life threatening deterioration of the patient's condition. The time involved in the performance of separately reportable procedures was not counted toward critical care time. Patient seen and examined at bedside Labs, radiology, chart personally reviewed. 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 Ischemic hepatitis . Worsening lactic acidosis ,CT abdomen showed pancreatitis no evidence of ischemic hepatitis . Renal:Acute Kidney injury - with hyperkalemia started on [facility] [place] ID: Septic shock on broad spectrum antibiotics and atypical coverage Heme/Onc:Labs reviewed , acute blood loss anemia , coagulopathy due to liver failure Endo: Glucose Monitored Integ/MSK: Skin Care per routine ICU Nursing Protocol to prevent ulcers. Lines: All lines examined without evidence of infection : Dispo: Critically ill CODE:Full CODE informed family that he is very sick first 12 hours is very critical he might code anytime . MODS with greater than 50% mortality
[2017-06-10 03:51] LABS: Albumin 3.1 g/dL (3.5-5.7); Bilirubin,Total 0.8 mg/dL (0.3-1.0); Calcium 7.9 mg/dL (8.6-10.3); Globulin 3.2 g/dL (2.4-3.5); Potassium 5.3 mEq/L (3.5-5.1); Total Protein 6.3 g/dL (6.4-8.9)
[2017-06-10] MEDS ORDERED: Lacri-Lube 3.5 GM TUBE BOTH EYES SCH (04:00)
[2017-06-10 04:02] LABS: Lymphocytes # 1.7 K/mcL (0.6-4.6); Monocytes # 0.7 K/mcL (0.0-1.3); Neutrophils # 13.3 K/mcL (1.6-8.9); Platelet Estimate Normal (Normal)
[2017-06-10 04:03] LABS: Platelet Clumps Few (Not Present)
[2017-06-10] MEDS: Octreotide 400 MCG in 0.9 % Sodium Chloride 100 ML IVC SCH ×4 (04:04→20:13)
[2017-06-10] MEDS ORDERED: FentaNYL (PF) 1,000 MCG in 0.9 % Sodium Chloride 80 ML IVC SCH ×2 (04:15→07:50)
[2017-06-10 04:43] LABS: ABG Base Excess -12 mEq/L (-2 to 3); ABG HCO3 17 mEq/L (21-27); ABG Oxygen Saturation 100 % (95-98); ABG PCO2 52 mmHg (35-45); ABG PH 7.13 pH Units (7.32-7.45); ABG PO2 238 mmHg (85-104); ABG TCO2 19 mEq/L (20-26); Blood Gas Modality ASSIST CONTROL; Blood Gas PEEP 5 cm H2O; Blood Gas Respiration Rate 14; Blood Gas VT 500 cc
[2017-06-10] MEDS ORDERED: 0.9 % Sodium Chloride 1,000 ML IVC ONE ×3 (04:45→16:49)
[2017-06-10 06:23] LABS: ABG Base Excess -12 mEq/L (-2 to 3); ABG HCO3 16 mEq/L (21-27); ABG Oxygen Saturation 98 % (95-98); ABG PCO2 42 mmHg (35-45); ABG PH 7.19 pH Units (7.32-7.45); ABG PO2 129 mmHg (85-104); ABG TCO2 17 mEq/L (20-26); Blood Gas Modality ASSIST CONTROL; Blood Gas Pressure Support 5 cm H2O; Blood Gas Respiration Rate 18; Blood Gas VT 500 cc
[2017-06-10] MEDS ORDERED: Norepinephrine 4 MG in D5% in Water 250 ML IVC SCH ×2 (06:45→07:50)
[2017-06-10] MEDS ORDERED: *HR* Midazolam HCl 5 MG/5 ML VIAL IVP ONE (07:33)
[2017-06-10] MEDS ORDERED: *HR* Midazolam HCl 2 MG/2 ML VIAL IV ONE (07:33)
[2017-06-10] MEDS ORDERED: *HR* Etomidate 20 MG/10 ML AMPUL IVP ONE (07:33)
[2017-06-10] MEDS ORDERED: *HR* Dextrose 50 % in Water (Syg) 50 ML SYRINGE IVP PRN (07:50)
[2017-06-10] MEDS ORDERED: D5% in Water 1,000 ML IVC PRN (07:50)
[2017-06-10] MEDS ORDERED: Dextrose Gel 15 GM/37.5 ML TUBE PO PRN ×2 (07:50)
[2017-06-10] MEDS ORDERED: MetroNIDAZOLE 500 MG/100 ML 500 MG/100 ML BAG IVPB SCH (08:00)
[2017-06-10] MEDS ORDERED: Meropenem 500 MG in 0.9 % Sodium Chloride Mini Bag 100 ML IVPB SCH (08:00)
[2017-06-10] MEDS: Pantoprazole 40 MG in 0.9 % Sodium Chloride Mini Bag 100 ML IVC SCH ×3 (08:55→19:19)
[2017-06-10] MEDS ORDERED: Chlorhexidine Rinse 15 ML MOUTHWASH MM SCH (09:00)
[2017-06-10] MEDS: Chlorhexidine Rinse 15 ML MOUTHWASH MM SCH ×2 (09:07→21:17)
[2017-06-10] MEDS: Lacri-Lube 3.5 GM TUBE BOTH EYES SCH ×4 (09:09→21:15)
[2017-06-10 10:55] LABS: Hematocrit 37.7 % (37.5-50.1); Mean Corpuscular HGB Conc 32.1 g/dL (31.6-35.5); Mean Corpuscular Hemoglobin 28.9 pg (28.0-33.3); Mean Corpuscular Volume 90.2 fL (83.0-100.0); Mean Platelet Volume 10.3 fL (9.4-12.4); Nucleated Red Blood Cells 0.5 /100 WBC (0); Platelet Count 230 K/mcL (140-400); Red Blood Count 4.18 M/mcL (4.19-5.50); Red Cell Distribution Width 15.4 % (11.5-14.5)
[2017-06-10 11:04] LABS: Hemoglobin 12.1 g/dL (12.9-16.9)
[2017-06-10 11:10] LABS: ABG Base Excess -14 mEq/L (-2 to 3); ABG HCO3 12 mEq/L (21-27); ABG Oxygen Saturation 96 % (95-98); ABG PCO2 28 mmHg (35-45); ABG PH 7.24 pH Units (7.32-7.45); ABG PO2 91 mmHg (85-104); ABG TCO2 13 mEq/L (20-26); Blood Gas Modality ASSIST CONTROL; Blood Gas PEEP 5 cm H2O; Blood Gas Respiration Rate 18; Blood Gas VT 650 cc
[2017-06-10 11:42] LABS: Lymphocytes # 1.4 K/mcL (0.6-4.6); Monocytes # 0.6 K/mcL (0.0-1.3); Neutrophils # 3.3 K/mcL (1.6-8.9); Platelet Estimate Normal (Normal)
--- NOTE | 2017-06-10 12:18 | Gastroenterology Consult Note ---
<Philippe Chang - Last Filed: 06/10/17 12:16> Date of Encounter: 06/10/17 Time of Encounter: 10:45 - Assessment and plan (1) Pancreatitis Current Visit: Yes Status: Acute Assessment and plan: Noted on imaging. Lipase 917 on admission and today 426. Continue IV fluids, pain control. Triglycerides 208. Check IgG4, ionized calcium, and GRACY. Family believes patient started drinking alcohol again. Pancreatitis may be due to ETOH. BISAP 2 on admission. Qualifiers: Chronicity: acute Pancreatitis type: unspecified pancreatitis type Acute pancreatitis complication: unspecified Qualified Code(s): K85.90 - Acute pancreatitis without necrosis or infection, unspecified (2) Upper gastrointestinal bleed Current Visit: Yes Status: Acute Assessment and plan: Continue to monitor CBC. Hgb stable at 14.1 this AM. If Hgb drops or signs of bleeding noted (melena, hematochezia), will consider EGD at that time. Continue PPI drip. (3) Acute respiratory failure with hypoxia Current Visit: Yes Status: Acute Assessment and plan: Management per ICU team. (4) Sepsis Current Visit: Yes Status: Acute Assessment and plan: WBC 20.5 on admission with lactic acid of 3.3. Management per primary and ICU team Qualifiers: Sepsis type: sepsis due to unspecified organism Qualified Code(s): A41.9 - Sepsis, unspecified organism - Time Spent With Patient Total time spent is greater than 50% in coordination of care (as documented) at patient's floor/unit and/or counseling patient: GI History of Present Illness - Data of Consult Patient: new to practice Consult date: 06/10/17 Requesting Physician: Eloise Scott MD - Consult Narrative Reason for consult: Upper GI bleed History of present illness: Mr. Galvez is a 56 year old male with PMHx of HTN who presented with generalized abdominal pain, chest pain, and SOB. CT of the chest, abdomen and pelvis which did demonstrate bilateral patchy consolidative changes at the bases suspicious for aspiration pneumonia, and additionally he had CT changes suggestive of acute pancreatitis as well as an elevated lipase at 917, and WBC greater than 20 ,000. The patient was initially admitted to the medicine floor, however while on the floor the nurses noticed that his legs became increasingly mottled in his feet became blue. The patient complained of significantly worsening chest pain and abdominal pain that was intolerable. He quickly became extremely dyspneic, and continued to have worsening O2 saturation. Upon attempt to intubate the patient began vomiting coffee ground emesis acutely which required suctioning, however he was successfully intubated. Lactic acid elevated at 3.3. He was starting on IV fluids for his pancreatitis and Meropenem was added for coverage of his pancreas. Procedures: None NSAIDs: ASA Anticoagulation: None Past Med Surg Social Fam HX - Past Medical History Medical history: hypertension Psychiatric history: no psych history - Past Surgical History Surgical History: other - Social History Smoking Status: Current every day smoker Smokeless Tobacco Status: No Alcohol use: none Drug use: none ROS unobtainable: due to endotracheal tube - Constitutional Vitals: Temp Pulse Resp BP Pulse Ox 99.9 F H 80 28 142/62 90 06/10/17 08:00 06/10/17 11:00 06/10/17 11:04 06/10/17 11:04 06/10/17 11:04 Exam: Intubated and sedated - Head Head exam: Present: atraumatic, normocephalic - ENT Additional comments: ET tube in place - Neck Neck exam general surgery: Present: normal inspection, trachea midline - Respiratory Additional comments: Mechanical breath sounds - Cardiovascular Cardiovascular exam: Present: RRR, +S1, +S2 - GI/Abdominal GI/Abdominal exam: Present: distended, firm, no peritoneal signs - Rectal Rectal exam: Present: deferred - Extremities Exam Extremities exam: Present: warm - Neurological Exam Additional comments: Sedated - Skin Skin exam: Present: dry, intact Results - Labs CBC & Chem 7: 06/10/17 10:41 06/10/17 03:21 Labs: Last Result Calcium 7.9 mg/dL (8.6-10.3) L 06/10/17 03:21 Troponin I 0.73 ng/mL (< 0.04) H* 06/10/17 07:35 Triglycerides 208 mg/dL (< 150) H 06/09/17 20:11 Entire Visit Hgb 12.1 g/dL (12.9-16.9) L D 06/10/17 10:41 Hct 37.7 % (37.5-50.1) 06/10/17 10:41 PT 15.2 Seconds (9.4-12.1) H 06/10/17 03:24 Total Bilirubin 0.8 mg/dL (0.3-1.0) 06/10/17 03:21 AST 204 Units/L (13-39) H 06/10/17 03:21 ALT 88 Units/L (7-52) H 06/10/17 03:21 Lipase 426 Units/L (11-82) H 06/10/17 07:35 - ABG ABG results: ABG ABG pH 7.24 pH Units (7.32-7.45) L 06/10/17 11:03 ABG pCO2 28 mmHg (35-45) L 06/10/17 11:03 ABG pO2 91 mmHg (85-104) 06/10/17 11:03 ABG O2 Saturation 96 % (95-98) 06/10/17 11:03 PT/INR, D-dimer PT 15.2 Seconds (9.4-12.1) H 06/10/17 03:24 - Impressions Impressions Chest X-Ray 06/10/17 03:29 IMPRESSION: 1. The endotracheal tube tip is 3-4 cm above the floyd. 2. The enteric tube is in good position in the stomach. 3. Clear lungs. D/ / Jose Hercules MD / Jose Hercules MD Interpreting Provider: Jose Hercules MD X-Ray 06/10/17 03:29 IMPRESSION: 1. The endotracheal tube tip is 3-4 cm above the floyd. 2. The enteric tube is in good position in the stomach. 3. Clear lungs. D/ / Jose Hercules MD / Jose Hercules MD Interpreting Provider: Jose Hercules MD Chest X-Ray 06/10/17 08:42 IMPRESSION: 1. New right internal jugular central line terminates in the lower superior vena cava. No associated pneumothorax. 2. Interstitial prominence likely related to tree-in-bud opacities seen on CT, suggesting bronchiolitis. D/ / Philippe Car MD / Philippe Car MD Interpreting Provider: Philippe Car MD Consult Discharge Plan - Plan Referrals: Dex Franklin MD [Primary Care Provider] - <Sandro Gupta - Last Filed: 06/10/17 14:31> Date of Encounter: 06/10/17 Time of Encounter: 07:40 - Time Spent With Patient Total time spent is greater than 50% in coordination of care (as documented) at patient's floor/unit and/or counseling patient: GI History of Present Illness - Data of Consult Requesting Physician: Eloise Scott MD - Consult Narrative History of present illness: Mr. Galvez is a 56 year old male - Constitutional Vitals: Temp Pulse Resp BP Pulse Ox 102.4 F H 93 26 91/68 95 06/10/17 12:00 06/10/17 13:00 06/10/17 13:07 06/10/17 13:00 06/10/17 13:07 Results - Labs CBC & Chem 7: 06/10/17 10:41 06/10/17 03:21 Labs: Last Result Calcium 7.9 mg/dL (8.6-10.3) L 06/10/17 03:21 Troponin I 0.73 ng/mL (< 0.04) H* 06/10/17 07:35 Triglycerides 208 mg/dL (< 150) H 06/09/17 20:11 Entire Visit Hgb 12.1 g/dL (12.9-16.9) L D 06/10/17 10:41 Hct 37.7 % (37.5-50.1) 06/10/17 10:41 PT 15.2 Seconds (9.4-12.1) H 06/10/17 03:24 Total Bilirubin 0.8 mg/dL (0.3-1.0) 06/10/17 03:21 AST 204 Units/L (13-39) H 06/10/17 03:21 ALT 88 Units/L (7-52) H 06/10/17 03:21 Lipase 426 Units/L (11-82) H 06/10/17 07:35 - ABG ABG results: ABG ABG pH 7.24 pH Units (7.32-7.45) L 06/10/17 11:03 ABG pCO2 28 mmHg (35-45) L 06/10/17 11:03 ABG pO2 91 mmHg (85-104) 06/10/17 11:03 ABG O2 Saturation 96 % (95-98) 06/10/17 11:03 PT/INR, D-dimer PT 15.2 Seconds (9.4-12.1) H 06/10/17 03:24 - Impressions Impressions Chest X-Ray 06/10/17 03:29 IMPRESSION: 1. The endotracheal tube tip is 3-4 cm above the floyd. 2. The enteric tube is in good position in the stomach. 3. Clear lungs. D/ / Jose Hercules MD / Jose Hercules MD Interpreting Provider: Jose Hercules MD X-Ray 06/10/17 03:29 IMPRESSION: 1. The endotracheal tube tip is 3-4 cm above the floyd. 2. The enteric tube is in good position in the stomach. 3. Clear lungs. D/ / Jose Hercules MD / Jose Hercules MD Interpreting Provider: Jose Hercules MD Chest X-Ray 06/10/17 08:42 IMPRESSION: 1. New right internal jugular central line terminates in the lower superior vena cava. No associated pneumothorax. 2. Interstitial prominence likely related to tree-in-bud opacities seen on CT, suggesting bronchiolitis. D/ / Philippe Car MD / Philippe Car MD Interpreting Provider: Philippe Car MD - Attending Attestation I examined this patient and my medical decision-making was reviewed with the IT SECURITY CONSULTING DIRECTOR. I agree with the documented findings, disposition and treatment plan as described except to the extent set forth below. Pancreatitis with multiorgan failure including respiratory renal and the GI bleed. NG tube has coffee-ground material, there is no red blood Rec: Treatment of pancreatitis including IV fluid, follow H&H continue PPI drip no need for urgent EGD..
[2017-06-10 13:33] LABS: VBG Ionized Calcium 0.87 mmol/L (1.15-1.35)
[2017-06-10 14:31] LABS: Calcium 7.1 mg/dL (8.6-10.3); Magnesium 2.5 mg/dL (1.6-2.6); Potassium 6.8 mEq/L (3.5-5.1)
[2017-06-10] MEDS ORDERED: Insulin Human Regular 10 UNIT in 0.9 % Sodium Chloride 10 ML IV ONE ×2 (14:49→23:54)
--- NOTE | 2017-06-10 15:07 | Nephrology Consult Note ---
Date of Encounter: 06/10/17 Time of Encounter: 15:04 Assessment and Plan (1) SARAH (acute kidney injury) Current Visit: Yes Status: Acute Patient without a history of renal disease presenting with oliguric acute kidney injury secondary to severe sepsis. Family denies knowledge of NSAID use. With low urine output, rising potassium and metabolic acidosis he would benefit from renal replacement therapy. I spoke with his family at the bedside and they are agreeable to performing dialysis after risks and benefits were explained to them. Secondary to his severe sepsis I will start with CVVHDF. 31 minutes spent in the care of this critically ill patient. Spoke with the family. Spoke with Dr. Wood about plan of care. (2) Severe sepsis Current Visit: Yes Status: Acute Patient with severe sepsis with multiple organ failure. He has a number of contributing factors. Continue pressors and treating underlying disorder(s). (3) Acute respiratory failure with hypoxia Current Visit: Yes Status: Acute Patient is intubated. Management per ICU team. (4) Aspiration pneumonia Current Visit: Yes Status: Acute Continue antibiotics. Qualifiers: Aspiration pneumonia type: unspecified Laterality: bilateral Lung location: lower lobe of lung Qualified Code(s): J69.0 - Pneumonitis due to inhalation of food and vomit (5) Upper gastrointestinal bleed Current Visit: Yes Status: Acute GI is following. Transfuse as needed. (6) Hypocalcemia Current Visit: Yes Status: Acute Replace per protocol. (7) Hyperphosphatemia Current Visit: Yes Status: Acute Starting dialysis which should help. (8) Anemia Current Visit: Yes Status: Acute Acute blood loss anemia. Transfuse if needed. Qualifiers: Qualified Code(s): D64.9 - Anemia, unspecified History of Present Illness - Reason for Consult Consult date: 06/10/17 Acute Kidney Injury, hyperkalemia - Chief Complaint Renal failure - History of Present Illness Mr. Galvez is a 56 yo man with a history of hypertension who presents for the evaluation of chest pain. He developed sepsis from pneumonia and was found to have a GI bleed while being intubated. [facility] was consulted to assist with management of acute kidney injury and hyperkalemia. History is from review of the medical records as the patient is critically ill, intubated, sedated and unable to answer questions. He has family members are at his bedside. Past Med Surg Social Fam HX - Past Medical History Medical history: hypertension Psychiatric history: no psych history - Past Surgical History Surgical History: other - Social History Smoking Status: Current every day smoker Smokeless Tobacco Status: No Alcohol use: none Drug use: none Medications and Allergies Aspirin Enteric Coated [Aspirin EC] 81 mg PO DAILY 06/09/17 [History] Atenolol [Tenormin] 50 mg PO DAILY 06/09/17 [History] Gabapentin [Neurontin] 800 mg PO TID 06/09/17 [History] Multivitamin [One Daily Essential] 1 each PO DAILY 06/09/17 [History] Quetiapine Fumarate [Seroquel] 50 mg PO HS 06/09/17 [History] Sertraline [Zoloft] 150 mg PO DAILY 06/09/17 [History] Simvastatin [Zocor] 20 mg PO HS 06/09/17 [History] Tizanidine HCl 4 mg PO TID PRN 06/09/17 [History] 3 Allergy/AdvReac Type Severity Reaction Status Date / Time No Known Allergies Allergy Verified 12/13/14 18:30 Review of Systems ROS unobtainable: due to endotracheal tube, due to mental status Exam - Vital Signs Vital signs: Initial Vital Signs Temp Pulse Resp BP Pulse Ox 97.8 F 88 16 90/60 89 06/09/17 20:02 06/09/17 20:02 06/09/17 20:02 06/09/17 20:02 06/09/17 20:02 Vital Signs - Last 8 Hours Temp Pulse Resp BP Pulse Ox 06/10/17 14:46 21 123/73 96 06/10/17 14:00 102.5 F H 87 22 113/35 95 06/10/17 13:07 26 95 06/10/17 13:00 93 22 91/68 95 06/10/17 12:00 102.6 F H 92 26 91/68 95 06/10/17 11:04 28 142/62 90 06/10/17 11:00 80 28 142/63 94 06/10/17 10:00 77 28 83/41 92 06/10/17 09:22 24 96 06/10/17 09:00 73 24 92/71 96 06/10/17 08:00 99.9 F H 77 21 107/46 95 06/10/17 07:30 23 99 Intake and Output 06/09/17 06/10/17 06/10/17 23:59 07:59 15:59 Intake Total 4600 / 4600 1500 / 1500 Output Total 925 / 925 30 / 30 Balance 3675 / 3675 1470 / 1470 Intake: IV Fluids 4600 / 4600 1500 / 1500 0.9 % Sodium Chloride 1,000 ML 4000 / 4000 1000 / 1000 @ 3750 mls/hr IVC .Q16M SD Rx# :[id number] SandoSTATIN 400 MCG In 0.9 % 100 / 100 Sodium Chloride 100 ML @ 50 MCG /HR 13 mls/hr IVC .Q8H SD Rx#: [id number] Protonix 40 MG In 0.9 % Sodium 200 / 200 Chloride (Mini-Bag +) 100 ML @ 20 mls/hr IVC .Q5H SD Rx#: [id number] Diprivan 1,000 mg In 100 ml @ 5 200 / 200 MCG/KG/MIN 2.313 mls/hr IVC . Q24H SD Rx#:[id number] Zosyn 3.375 GM In 0.9 % Sodium 100 / 100 Chloride 100 ML @ 25 mls/hr IVPB Q8H SD Rx#:[id number] Output: Catheter 175 / 175 30 / 30 Gastric Drainage 750 / 750 Other: Weight 81.6 kg Blood Glucose* 74 Patient Weight 06/10/17 23:59 Weight 81.6 kg - General Appearance General appearance: well-developed, well-nourished, sedated on ventilator, intubated EENT: ATNC Neck: supple Respiratory: course breath sounds Cardiology: no edema, regular rate Gastrointestinal: no tenderness, distended Integumentary: warm and dry, cool/clammy, ecchymotic Neurologic: obtunded Musculoskeletal: cyanosis Results - Lab Results 06/10/17 17:00 06/10/17 17:00 Most recent lab results ABG pH 7.24 pH Units (7.32-7.45) L 06/10/17 11:03 ABG pCO2 28 mmHg (35-45) L 06/10/17 11:03 ABG pO2 91 mmHg (85-104) 06/10/17 11:03 ABG HCO3 12 mEq/L (21-27) L 06/10/17 11:03 ABG O2 Saturation 96 % (95-98) 06/10/17 11:03 Calcium 7.1 mg/dL (8.6-10.3) L 06/10/17 13:10 Magnesium 2.5 mg/dL (1.6-2.6) 06/10/17 13:10 Urine Creatinine 104 mg/dL 06/10/17 11:15 Urine Sodium 21.0 mEq/L 06/10/17 11:15 Consult Discharge Plan - Plan Referrals: Dex Franklin MD [Primary Care Provider] -
[2017-06-10] MEDS ORDERED: *HR* Heparin 5,000 UNIT/ML VIAL ONE (15:25)
--- NOTE | 2017-06-10 15:42 | IR Procedure Note ---
Date of procedure: 06/10/17 Consent Obtained: Verbal consent, Written consent Timeout: Correct patient and procedure verified, Correct site verified, Time out performed, Skin prep completed Local anesthetic: Lidocaine 1% Indications: ARF Procedure Performed: L CFV TLC exchange to temp HDC Was there an material assistant present: No Estimated blood loss (cc): 5 Complications: None; Tolerated procedure well Post Procedure Treatment Plan: KUB Specimen: none
[2017-06-10] MEDS ORDERED: 0.9 % Sodium Chloride 500 ML ONE (16:04)
[2017-06-10] MEDS ORDERED: Phenylephrine 10 MG in D5% in Water 250 ML IVC SCH (16:30)
[2017-06-10] MEDS ORDERED: Norepinephrine 8 MG in D5% in Water 250 ML IVC SCH (16:30)
[2017-06-10] MEDS ORDERED: *HR* Heparin 5,000 UNIT/ML VIAL IV PRN (16:39)
[2017-06-10] MEDS ORDERED: *HR* Alteplase (Cathflo) 2 MG VIAL IVP PRN (16:39)
[2017-06-10] MEDS ORDERED: PrismaSATE BGK 2/0 5,000 ML CRRT SCH (16:45)
[2017-06-10] MEDS ORDERED: 0.9 % Sodium Chloride 1,000 ML PRIME SCH (16:45)
[2017-06-10] MEDS ORDERED: PrismaSATE BGK 4/2.5 5,000 ML CRRT SCH ×2 (16:45)
--- NOTE | 2017-06-10 17:00 | Vascular/Endovasc Consult Note ---
Date of Encounter: 06/10/17 Time of Encounter: 08:00 Assessment and Plan (1) SARAH (acute kidney injury) Current Visit: Yes Status: Acute Marked elevation of BUN and creatinine and diminished urinary output. Further contrast studies of the lower extremity arterial systems are not feasible at this time due to this acute kidney injury. (2) Pancreatitis Current Visit: Yes Status: Acute Patient has acute pancreatitis with third spacing and the abdomen and retroperitoneum. Qualifiers: Chronicity: acute Pancreatitis type: unspecified pancreatitis type Acute pancreatitis complication: unspecified Qualified Code(s): K85.90 - Acute pancreatitis without necrosis or infection, unspecified (3) Peripheral artery disease Current Visit: Yes Status: Chronic CT scan indicates chronic occlusion of right common iliac artery and significant disease of the right external iliac artery. There is also calcific changes of the infrarenal abdominal aorta. The distal perfusion deficits indicate a probable acute on chronic process with poor distal perfusion and hypotension. Due to the ongoing upper GI bleeding as evidenced by the NG suction and the findings that endotracheal intubation the use of intravenous heparin or thrombolytics is contraindicated. The overall prognosis for the lower extremities is poor unless the underlying sepsis and hypotension issues can be rapidly reversed. Surgical intervention or endovascular intervention at this time is not feasible. This was discussed with the patient's sister and niece later in the afternoon and explained in great detail to their satisfaction and understanding. (4) Aspiration pneumonia Current Visit: Yes Status: Acute Patient has probable aspiration pneumonia with marked respiratory distress and multisystem organ failure. Qualifiers: Aspiration pneumonia type: unspecified Laterality: bilateral Lung location: lower lobe of lung Qualified Code(s): J69.0 - Pneumonitis due to inhalation of food and vomit (5) Hypotension Current Visit: Yes Status: Acute Probable causes from multisystem organ failure and third space fluid distributions. Qualifiers: Hypotension type: other hypotension type Qualified Code(s): I95.89 - Other hypotension (6) Sepsis Current Visit: Yes Status: Acute Contributing factor to multisystem organ failure and overall poor prognosis for this patient. Qualifiers: Sepsis type: sepsis due to unspecified organism Qualified Code(s): A41.9 - Sepsis, unspecified organism - History of Present Illness Consult date: 06/10/17 Requesting physician: Carlito Hoffman Consult reason: Lower leg ischemia Chief complaint: Patient presented to the ER with chest pain and abdominal pain and multiple History of present illness: Mr. Galvez is a 56 year old male Who was admitted early this morning through the emergency room. He was brought in by squad and had multiple complaints including abdominal pain and chest pain. The patient underwent a CT scan of the abdomen chest and pelvis. This revealed pancreatic inflammation as well as questionable pulmonary issues and occlusion of the right common iliac artery that appeared to be chronic. There also chronic findings of atherosclerotic disease of the aorta. The mesenteric and renal arteries however were widely patent. The femoral vessels are patent. The right external iliac artery is patent but is diminished in diameter. It was noted that the patient had nonpalpable pulses in the feet. Noninvasive studies were performed and the results are on the chart which essentially show an ankle-brachial index of approximately 0.7 on the left and 0.17 on the right. The patient went on to deteriorate in the middle the night and required intubation and transferred to the intensive care unit. He is on mechanical ventilation and sedation at the time of my visit this morning. Important to note is the patient had a distended stomach on the CT scan and was later found to have coffee ground emesis and probable aspiration when the patient was intubated. Because of this bleeding heparin and thrombolytics are not feasible for the patient. In addition he was found to have acute kidney injury with markedly elevated creatinine and poor urine output. Further contrast study of the lower extremities was then also contraindicated. At the time of my visit a central line was in the process of being placed by the ICU staff and Levophed was to be initiated. Past history regarding vascular issues or lower extremity claudication were unknown. Past Med Surg Social Fam HX - Past Medical History Medical history: hypertension Psychiatric history: no psych history - Past Surgical History Surgical History: other - Social History Smoking Status: Current every day smoker Smokeless Tobacco Status: No Alcohol use: none Drug use: none Medications and Allergies Aspirin Enteric Coated [Aspirin EC] 81 mg PO DAILY 06/09/17 [History] Atenolol [Tenormin] 50 mg PO DAILY 06/09/17 [History] Gabapentin [Neurontin] 800 mg PO TID 06/09/17 [History] Multivitamin [One Daily Essential] 1 each PO DAILY 06/09/17 [History] Quetiapine Fumarate [Seroquel] 50 mg PO HS 06/09/17 [History] Sertraline [Zoloft] 150 mg PO DAILY 06/09/17 [History] Simvastatin [Zocor] 20 mg PO HS 06/09/17 [History] Tizanidine HCl 4 mg PO TID PRN 06/09/17 [History] 3 Allergy/AdvReac Type Severity Reaction Status Date / Time No Known Allergies Allergy Verified 12/13/14 18:30 All Systems Review: The remainder of the systems were reviewed and are negative Exam Vital Signs, Last 4 Hours Temp Pulse Resp BP Pulse Ox 06/10/17 15:00 101.7 F H 84 23 67/54 95 06/10/17 14:46 21 123/73 96 06/10/17 14:00 102.5 F H 87 22 113/35 95 06/10/17 13:07 26 95 06/10/17 13:00 93 22 91/68 95 General: Present: Other (Patient was intubated and not responsive. He was on intravenous sedation.) HEENT: Present: Atraumatic, Normocephaly, Trachea midline Neck: Absent: JVD, Midline deformity, Tracheal deviation Cardiac: Present: Reg Rate and Rhythm, Normal S1 and S2 Lungs: Present: Decreased breath sounds, No Wheeze, Rales, Rhonchi Neuro: Present: Other (Patient was intubated so neurologic evaluation was not possible. The patient did have some random movement of his extremities.) Abdomen: Present: Soft, Non-tender, Other (His abdomen was distended. Bowel sounds were hypoactive.). Absent: Masses Vascular: Present: Pulse, absent (The patient had no palpable right femoral or bilateral popliteal or bilateral ankle pulses.), Cyanosis (The patient has cyanosis with mild mottling involving the feet and dorsum of the distal forefoot bilaterally but greater on the right side versus the left.), Color/ Temperature (The feet were cool to cold more so on the right side than on the left.), Other (The patient has no palpable radial pulses. His hands show mild cyanosis of the palmaris surface and the 10 digits.). Absent: Clubbing, Edema, Amputation(s) Consult Discharge Plan - Plan Referrals: Dex Franklin MD [Primary Care Provider] -
[2017-06-10 17:11] LABS: Basophils % 0.2 %; Hematocrit 36.9 % (37.5-50.1); Hemoglobin 11.9 g/dL (12.9-16.9); Immature Granulocytes % 0.3 % (0-4); Lymphocytes # 0.7 K/mcL (0.6-4.6); Lymphocytes % 11.6 %; Mean Corpuscular HGB Conc 32.2 g/dL (31.6-35.5); Mean Platelet Volume 10.8 fL (9.4-12.4); Monocytes # 0.5 K/mcL (0.0-1.3); Monocytes % 8.1 %; Neutrophils # 4.6 K/mcL (1.6-8.9); Nucleated Red Blood Cells 0.9 /100 WBC (0); Platelet Count 179 K/mcL (140-400); Red Cell Distribution Width 15.6 % (11.5-14.5); Segmented Neutrophils % 79.8 %
[2017-06-10 17:19] LABS: INR 1.6; Prothrombin Time 17.1 Seconds (9.4-12.1)
[2017-06-10 17:33] LABS: Reactive Lymphocytes Present (Not Present)
[2017-06-10 17:37] LABS: Activated Partial Thrombo Time 186.8 Seconds (26.0-36.0)
[2017-06-10 17:42] LABS: Alanine Aminotransferase > 500 Units/L (7-52); Albumin 2.3 g/dL (3.5-5.7); Albumin/Globulin Ratio 0.9 (1.1-2.2); Alkaline Phosphatase 66 Units/L (34-104); BUN/Creatinine Ratio 22 (6-26); Bilirubin,Total 0.6 mg/dL (0.3-1.0); Blood Urea Nitrogen 106 mg/dL (6-20); Carbon Dioxide 16 mEq/L (23-29); Chloride 106 mEq/L (98-107); Globulin 2.5 g/dL (2.4-3.5); Glucose 37 mg/dL (70-105); Osmolality,Calculated 322 (280-300); Potassium 5.1 mEq/L (3.5-5.1); Sodium 141 mEq/L (136-145); Total Protein 4.8 g/dL (6.4-8.9); eGFR For African Americans 15 (> 60); eGFR For Non-African Americans 13 (> 60)
[2017-06-10] MEDS ORDERED: *HR* Dextrose 50 % in Water (Syg) 50 ML SYRINGE ONE (17:43)
[2017-06-10] MEDS ORDERED: *HR* Dextrose 50 % in Water (Syg) 50 ML SYRINGE IVP ONE (17:44)
[2017-06-10 18:00] LABS: Heparin anti-factor XA UFH 0.83 IU/mL (0.30-0.70)
--- NOTE | 2017-06-10 18:27 | Procedure Note ---
Date of procedure: 06/10/17 Pre-op diagnosis: GI bleed , Pneumonia , pancreatitis septic shock Procedure: Central Venous Catheter (CVC, Central Line) Placement Date: 06/10/2017 Time: 07: 30 am Indication: Hemodynamic monitoring/Intravenous access Resident: Dr.Schimdt Jose Attending: A time-out was completed verifying correct patient, procedure, site, positioning , and special equipment if applicable. The patient was placed in a dependent position appropriate for central line placement based on the vein to be cannulated. The patients right neck was prepped and draped in sterile fashion. 1% Lidocaine was used to anesthetize the surrounding skin area. A triple lumen 9-Kittitian Cordis catheter was introduced into the the Right nternal jugular vein using the Seldinger technique and under ultrasound guidance. The catheter was threaded smoothly over the guide wire and appropriate blood return was obtained. Each lumen of the catheter was evacuated of air and flushed with sterile saline. The catheter was then sutured in place to the skin and a sterile dressing applied. Attending [place] was present for the entire procedure. Did the Critical portions of the procedure Estimated Blood Loss: Minimal The patient tolerated the procedure well and there were no complications. Post procedure Chest X ray showed the Right IJ in satisfactory position with no pneumothorax Anesthesia: IV sedation Surgeon: Marisol Wood Was there an diet assistant present: Yes Real Property Appraiser: Hi Encarnacion Estimated blood loss (cc): 0 Specimen: none Condition: critical Disposition: ICU
[2017-06-10 18:31] LABS: Aspartate Amino Transferase 1907 Units/L (13-39)
[2017-06-10 18:42] LABS: INR 1.7; Prothrombin Time 18.4 Seconds (9.4-12.1)
[2017-06-10 18:46] LABS: Magnesium 2.7 mg/dL (1.6-2.6); Phosphorous 9.2 mg/dL (2.7-4.5)
--- NOTE | 2017-06-10 18:51 | Procedure Note ---
Date of procedure: 06/10/17 Pre-op diagnosis: Septic Shock Post-op diagnosis: same Procedure: ARTERIAL LINE (A-Line) PLACEMENT Date: 06/10/2017 Time: 16:00 Indication: Hemodynamic monitoring Resident: Dr.Marcus Owen Attending: A time-out was completed verifying correct patient, procedure, site, positioning , and special equipment if applicable. The patients <right/left> wrist was prepped and draped in sterile fashion. 1% Lidocaine was used to anesthetize the area. A 18G Arrow arterial line was introduced into the left femoral artery. The catheter was threaded over the guide wire and the needle was removed with appropriate pulsatile blood return. The catheter was then sutured in place to the skin and a sterile dressing applied. Perfusion to the extremity distal to the point of catheter insertion was checked and found to be adequate. Attending was present for the entire procedure.I did the critical portion of the procedure . Estimated Blood Loss: minimal The complication was explained to the patient family . The patient tolerated the procedure well and there were no complications. Surgeon: Marisol Wood Was there an certified physical therapist assistant present: Yes Automotive Sales Manager: Antonio Owen Estimated blood loss (cc): 0 Specimen: none Pathology: none sent Condition: critical
[2017-06-10 18:59] LABS: Activated Partial Thrombo Time 119.1 Seconds (26.0-36.0)
[2017-06-10] MEDS ORDERED: 0.9 % Sodium Chloride 250 ML ONE ×2 (19:52→23:18)
[2017-06-10 20:56] LABS: ABG Base Excess -10 mEq/L (-2 to 3); ABG HCO3 17 mEq/L (21-27); ABG Oxygen Saturation 100 % (95-98); ABG PCO2 39 mmHg (35-45); ABG PH 7.24 pH Units (7.32-7.45); ABG PO2 280 mmHg (85-104); ABG TCO2 18 mEq/L (20-26); Blood Gas Modality ASSIST CONTROL; Blood Gas PEEP 5 cm H2O; Blood Gas Respiration Rate 18; Blood Gas VT 650 cc
[2017-06-10] MEDS ORDERED: Sodium Bicarbonate 150 MEQ in D5% in Water 1,000 ML IVC SCH (21:15)
[2017-06-10 21:22] LABS: ABG Base Excess -15 mEq/L (-2 to 3); ABG HCO3 14 mEq/L (21-27); ABG Oxygen Saturation 96 % (95-98); ABG PCO2 39 mmHg (35-45); ABG PH 7.15 pH Units (7.32-7.45); ABG PO2 103 mmHg (85-104); ABG TCO2 15 mEq/L (20-26); Blood Gas Modality ASSIST CONTROL; Blood Gas PEEP 5 cm H2O; Blood Gas Respiration Rate 18; Blood Gas VT 650 cc
[2017-06-10] MEDS ORDERED: Doxycycline 100 MG in 0.9 % Sodium Chloride Mini Bag 100 ML IVPB SCH (22:06)
[2017-06-10 22:43] LABS: Basophils % 0.7 %; Hematocrit 37.4 % (37.5-50.1); Immature Granulocytes % 0.7 % (0-4); Lymphocytes # 0.6 K/mcL (0.6-4.6); Lymphocytes % 10.3 %; Mean Corpuscular HGB Conc 32.1 g/dL (31.6-35.5); Mean Corpuscular Volume 90.3 fL (83.0-100.0); Monocytes # 0.1 K/mcL (0.0-1.3); Monocytes % 2.2 %; Neutrophils # 4.7 K/mcL (1.6-8.9); Nucleated Red Blood Cells 0.7 /100 WBC (0); Platelet Count 175 K/mcL (140-400); Red Blood Count 4.14 M/mcL (4.19-5.50); Red Cell Distribution Width 15.8 % (11.5-14.5); Segmented Neutrophils % 86.1 %
[2017-06-10] MEDS ORDERED: Calcium Chloride 1,000 MG in 0.9 % Sodium Chloride 100 ML IVPB ONE (22:49)
[2017-06-10 23:02] LABS: Large Platelets Present (Not Present); Platelet Estimate Normal (Normal); Reactive Lymphocytes Present (Not Present)
[2017-06-10 23:08] LABS: Albumin 2.4 g/dL (3.5-5.7); BUN/Creatinine Ratio 23 (6-26); Blood Urea Nitrogen 86 mg/dL (6-20); Calcium 6.9 mg/dL (8.6-10.3); Carbon Dioxide 12 mEq/L (23-29); Chloride 106 mEq/L (98-107); Glucose 62 mg/dL (70-105); Osmolality,Calculated 304 (280-300); Phosphorous 8.2 mg/dL (2.7-4.5); Sodium 135 mEq/L (136-145); eGFR For African Americans 20 (> 60); eGFR For Non-African Americans 17 (> 60)
[2017-06-10 23:21] LABS: VBG HCO3 10 mEq/L (21-27); VBG Ionized Calcium 0.79 mmol/L (1.15-1.35); VBG PCO2 30 mmHg (41-51); VBG PH 7.14 pH Units (7.32-7.42); VBG PO2 240 mmHg (25-50)
[2017-06-10 23:26] VITALS: BP 105/96
[2017-06-10 23:30] LABS: Alanine Aminotransferase > 500 Units/L (7-52); Albumin/Globulin Ratio 0.9 (1.1-2.2); Alkaline Phosphatase 79 Units/L (34-104); Bilirubin,Total 0.9 mg/dL (0.3-1.0); Globulin 2.6 g/dL (2.4-3.5)
[2017-06-10 23:36] LABS: Aspartate Amino Transferase > 3000 Units/L (13-39)
[2017-06-10] MEDS ORDERED: EPINEPHrine 1 MG in D5% in Water 250 ML IVC SCH (23:45)
[2017-06-10 23:48] LABS: Potassium 6.5 mEq/L (3.5-5.1)
[2017-06-10] MEDS ORDERED: *HR* EPINEPHrine 1 MG/10 ML SYRINGE ONE ×3 (23:58)
--- NOTE | 2017-06-11 00:10 | Death Note ---
Discharge Sum: Summary - Date and Time Date of admission: 06/10/17 00:29 Date of : 06/11/17 Time of : 00:04 - Summary Details: This is a 56-year-old gentleman with history of hypertension and PAD who presented to the ED with acute generalized abdominal and chest pain along with shortness of breath. On arrival the patient was found to have an elevated lipase and a CT which suggested acute pancreatitis. Additionally was found that the patient had what was likely aspiration pneumonia. He also had elevated troponin with minimal ST depressions in the lateral leads. Shortly into his stay the patient's legs and arms became extremely mottled and cyanotic. At that time a rapid response was called and the patient was extremely dyspneic and in no acute distress. Due to his respiratory distress and hypoxia the patient was intubated at that time and transferred to the ICU at which time he was started on fluids, broad-spectrum antibiotics. It was noted that at time of intubation the patient started experiencing copious coffee -ground emesis, and then also developed melenic stools. Vascular surgery, nephrology, GI were consulted and agreed to see the patient in the morning however was determined that he was unstable and not a candidate for procedures or surgeries. Throughout his course in the ICU the patient became increasingly septic and hypotensive requiring significant pressor activity. He also underwent one CODE BLUE earlier in the day, and while at rest was achieved the patient did continue to decompensate and required increased use of pressors. Eventually he was placed on continuous dialysis however he was not able to tolerate it and had another CODE BLUE. Family was at bedside and stated that they would like us to keep him as a full code at that time. The patient restabilize with additional vasopressors, however he did develop ectopy and then quickly went into cardiac arrest again. CPR was initiated and ACLS protocols were in place for approximately 15 minutes at which time family did make the decision to discontinue care. The patient immediately following this. - Additional Data Confirmation of as documented by pronouncing clinician: no pulse, no respirations, no heart sounds, pupils fixed and dilated Family: at bedside Attending/PCP notified?: Yes Attending physician: Eloise Scott MD Was code activated?: Yes Autopsy requested?: No credit union field examiner notified?: No Organ bank notified?: No Advance directives: No Hospice patient?: No Discharge Sum: Diag - PCOD Probable Cause of : Cardiac arrest Discharge Sum: Prov - Provider Primary care physician: Dex Franklin MD Admitting clinician: Philippe Willett Attending physician on admission: Marisol Wood Consults: 06/10/17 02:07 Consult to Vascular Surgery [CONS] Stat Consulting Provider: Vascular Surgery Keren Reason for Consult: Bilateral cold LE with dusky monet/purple toes and severe PAD Time Notified: 02:08 Call Completed: Yes 06/10/17 03:00 Consult to Gastroenterology [CONS] Stat Consulting Provider: Gastroenterology Keren Reason for Consult: massive Upper GIB Time Notified: 03:02 Call Completed: Yes 06/10/17 03:34 Consult to Pulmonology [CONS] Routine Consulting Provider: Pulm [facility] [place] Reason for Consult: Acute Respiratory Failure Time Notified: 03:35 Call Completed: Yes 06/10/17 14:55 Consult to Interventional Radiology [CONS] Stat Consulting Provider: Radiology Interventional [place] Reason for Consult: non tunneled hd catheter. Call Completed: Yes 06/10/17 15:29 Consult to Nephrology [CONS] Routine Consulting Provider: Kidney Keren/ALEXIA/DHEERAJ/MELITON Reason for Consult: SARAH with Hyperkalemia Time Notified: 03:00 Call Completed: Yes Pronouncing clinician: Philippe Willett
[2017-06-11] MEDS ORDERED: Doxycycline 100 MG in 0.9 % Sodium Chloride Mini Bag 100 ML IVPB SCH (06:00)
--- NOTE | 2017-06-11 15:57 | Electrocardiograph Report ---
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
--- NOTE | 2017-06-11 16:11 | Electrocardiograph Report ---
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
--- NOTE | 2017-06-11 16:14 | Electrocardiograph Report ---
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
[2017-06-12 17:51] LABS: Enterococcus by PCR Not Detected (Not Detect); mecA Methicillin-Resist Gene Not Detected (Not Detect)
[2017-06-12 17:52] LABS: Acinetobacter baumannii by PCR Not Detected (Not Detect); Candida albicans by PCR Not Detected (Not Detect); Candida glabrata by PCR Not Detected (Not Detect); Candida krusei by PCR Not Detected (Not Detect); Candida parapsilosis by PCR Not Detected (Not Detect); Candida tropicalis by PCR Not Detected (Not Detect); Escherichia coli by PCR Not Detected (Not Detect); Klebsiella oxytoca by PCR Not Detected (Not Detect); Klebsiella pneumoniae by PCR Not Detected (Not Detect); Pseudomonas aeruginosa by PCR Not Detected (Not Detect); Serratia marcescens by PCR Not Detected (Not Detect); Staphylococcus aureus by PCR Not Detected (Not Detect); Streptococcus agalactiae(B)PCR Not Detected (Not Detect); Streptococcus by PCR Not Detected (Not Detect); Streptococcus pneumoniae PCR Not Detected (Not Detect); Streptococcus pyogenes (A) PCR Not Detected (Not Detect)
[2017-06-15 09:01] LABS: ANA IgG IFA Titer <1:80 (<1:80); ANA IgG by ELISA DETECTED (None Detected); Immunoglobulin G Subclass 4 32 mg/dL (1-123)
== END 2017-06-11 00:04 | disposition expired | DRG 720 ==
LOC: 2ANU 20:02 → EMEROO 20:02 → 2ANU 23:49 → ICNU 06-10 03:31
PROVIDERS: ADMIT Internal Medicine; ATTEND Internal Medicine